=== PATIENT | male | born 1970 | race Caucasian/White ===

== ENCOUNTER 2019-11-25 07:42 | Emergency (ER) | payer BC ==
[2019-11-25] MEDS ORDERED: Sodium Chloride 0.9% 1,000 ML IV SCH (08:00)
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
[2019-11-25] MEDS ORDERED: Diphtheria,Pertussis(Acell),Tetanus Vaccine 0.5 ML Syringe IM ONE (08:04)
[2019-11-25] MEDS ORDERED: Iopamidol 755 Mg/ML 100 ML Bottle IVPUSH ONE (08:09)
[2019-11-25] MEDS ORDERED: Sodium Chloride 0.9% 10 ML Syringe FLUSH PRN (08:09)
[2019-11-25] MEDS ORDERED: Iopamidol 755 MG/ML 50 ML Bottle IVPUSH ONE (08:12)
--- NOTE | 2019-11-25 08:51 | CT ---
CT chest Technique: Multiple axial sections through the chest were obtained. Intravenous contrast was utilized. Comparison: No prior chest imaging is available. Findings: Slight atelectasis is seen within the left lung base along the paraspinal region. Lungs otherwise are clear. No acute pulmonary contusion is seen. No pleural effusions or pneumothorax is appreciated. No acute osseous finding is appreciated. Several old healed left upper rib fractures are noted. Mediastinum shows no hematoma. Aorta shows no aneurysm. No adenopathy is seen. No pericardial fluid is seen. No axillary adenopathy is noted. Impression: 1. Several old healed left upper rib fractures are noted. 2. Mild atelectasis along the left paraspinal region within the left lung base. 3. Nothing acute is appreciated on CT study of the chest. Diagnostic code #2 CT abdomen and pelvis Technique: Multiple axial sections were obtained from above the dome of the diaphragm inferiorly through the pubic symphysis. Intravenous contrast was utilized. No oral contrast has been given. Comparison: No prior abdominal imaging is available. Findings: Small hiatal hernia is noted. Very small low-density lesion is noted inferior within the right lobe of the liver measuring about 2.2 mm. This is nonspecific but likely is benign and incidental as no other liver abnormalities are appreciated. Spleen appears within normal limits. Left adrenal gland shows a small nodule measuring 1.0 cm. This finding is most likely due to a small benign adenoma. Pancreas appears within normal limits. Aorta shows no aneurysm. No retroperitoneal adenopathy or mesenteric abnormalities are seen. No pelvic mass or adenopathy is seen. Appendix is seen which is normal. Delayed images shows contrast within the distal ureters as well as contrast within the bladder. Bone window settings were reviewed which shows no acute osseous finding. Impression: 1. Findings believed to be incidental as described above. 2. Nothing acute is appreciated on CT study of the abdomen and pelvis. Diagnostic code #2 This report was dictated in MDT
== END 2019-11-25 09:29 | disposition home or self-care (01) ==
LOC: JD.ED 07:42
DX: S20.212A Contusion of left front wall of thorax, initial encounter (principal); S70.12XA Contusion of left thigh, initial encounter; S30.1XXA Contusion of abdominal wall, initial encounter; S40.012A Contusion of left shoulder, initial encounter; S00.81XA Abrasion of other part of head, initial encounter; Z88.8 Allergy status to other drugs, medicaments and biological substances; Z79.899 Other long term (current) drug therapy; V86.59XA Driver of other special all-terrain or other off-road motor vehicle injured in nontraffic accident, initial encounter
CPT/HCPCS: 36415; 71260; 74177; 80053; 85025; 90471; 99285; J7030; Q9967; 99283